=== PATIENT | male | born 1955 | race Caucasian/White ===

== ENCOUNTER 2022-10-06 16:06 | Emergency (ER) | payer MEDICARE, BC ==
[~2022-10-06 16:06] MED LIST: Iopamidol 300 61% 100 ML VIAL FS ONE
[2022-10-06] MEDS ORDERED: Acetaminophen 500 MG TAB ONE (16:50)
[2022-10-06 17:08] LABS: #Eosinphils 0.2 10x3/uL (0.0-0.5); #Monocytes 0.8 10x3/uL (0.0-1.1); #Neutrophils 8.7 10x3/uL (1.5-8.4); %Basophils 0.3 % (0.0-2.0); %Eosinophils 1.6 % (0.0-6.0); %Lymphocytes 11.2 % (18.0-47.0); %Monocytes 6.8 % (0.0-10.0); %Neutrophils 79.8 % (40.0-75.0); Hemoglobin 15.2 g/dL (13.5-17.5); Mean Corpuscular HGB CONC 33.7 g/dL (32.0-36.0); Mean Corpuscular Hemoglobin 29.1 pg (27.0-33.0); Mean Corpuscular Volume 86.2 fl (81.2-95.1); Mean Platelet Volume 9.6 fl (7.4-10.4); Platelet Count 220 10x3/uL (150-450); Red Blood Cell (RBC) Count 5.23 10x6/uL (4.32-5.72)
[2022-10-06 17:14] LABS: ALT (SGPT) 101 U/L (8-55); AST (SGOT) 67 U/L (5-34); Albumin 4.4 g/dL (3.4-4.8); Alkaline Phosphatase 122 U/L (40-110); Anion Gap 15 mmol/L (10-20); BUN (Urea Nitrogen) 13 mg/dL (8.4-25.7); Bilirubin, Total 1.7 mg/dL (0.2-1.2); Calc. Creatinine Clearance 0 mL/min (70-130); Calcium 9.2 mg/dL (7.8-10.44); Carbon Dioxide 25 mmol/L (23-31); Chloride 98 mmol/L (98-107); Estimated GFR 82; Globulin 3.6 g/dL (2.4-3.5); Glucose 133 mg/dL (80-115); Potassium 4.4 mmol/L (3.5-5.1); Sodium 134 mmol/L (136-145)
[2022-10-06 17:14] LABS: Bilirubin 1+ (Negative); Blood, Urine 25 (Negative); Clarity Clear (Clear); Glucose, Urine (Dipstick) Normal (Negative); Ketone, Urine Negative (Negative); Leukocyte 25 (Negative); Nitrite Negative (Negative); Protein, Urine (Dipstick) 15 mg/dl (Neg-Trace); Specific Gravity, Urine 1.015 (1.005-1.030)
[2022-10-06 17:38] LABS: Bacteria/HPF Rare-Few HPF (None Seen); RBC/HPF 0-3 HPF (0-3); Squamous Epithelial 0-3 HPF (0-3)
== END 2022-10-06 18:33 | disposition home or self-care (01) ==
LOC: CSHERS 16:06
DX: A77.0 Spotted fever due to Rickettsia rickettsii (principal); D72.829 Elevated white blood cell count, unspecified
CPT/HCPCS: 36415; 70487; 81003; 81015; 83605; 87040; 96360; 96361; Q9967

== ENCOUNTER 2024-03-06 15:26 | Outpatient (CLI) | payer BC | END 2024-03-06 15:27 | disposition home or self-care (01) | LOC: CSHMRI 15:26 | PROVIDERS: ATTEND Neurological Surgery | DX: M51.04 Intervertebral disc disorders with myelopathy, thoracic region (principal) | CPT/HCPCS: 72146 ==